=== PATIENT | female | born 1985 | race Caucasian/White ===

== ENCOUNTER → 2023-08-01 09:14 | Outpatient (REF) | payer BC, SELFPAY ==
[2023-08-11 12:10] LABS: HPV, High Risk Not Detected; HPV, High Risk Source Cervical
[2023-08-11 16:42] LABS: Chlamydia trachomatis,ThinPrep Negative (Negative); Neisseria gonorrhoeae,ThinPrep Negative (Negative); Specimen Source Cervical
== END ==
LOC: CLAB 09:14
PROVIDERS: ATTENDING PHYSICIAN Nurse Practitioner Family
DX: Z34.90 Encounter for supervision of normal pregnancy, unspecified, unspecified trimester (principal)
CPT/HCPCS: 87491; 87591; 87624; G0123

== ENCOUNTER → 2023-08-04 07:07 | Outpatient (REF) | payer BC, SELFPAY ==
[2023-08-04 08:10] LABS: Urine Albumin Negative (Neg - Trace); Urine Bilirubin Negative (Negative); Urine Character Clear (Clear); Urine Color Straw; Urine Glucose Negative (Negative); Urine Ketone Negative (Negative); Urine Leukocyte Negative (Negative); Urine Nitrite Negative (Negative); Urine Occult Blood Negative (Negative); Urine Urobilinogen Negative (Neg - 1+)
[2023-08-04 08:30] LABS: % Basophils 0.8 % (0-2); % Eosinophils 2.2 % (0-6); % Immature Granulocytes 0.3 % (0-0.5); % Monocytes 4.9 % (1.7-9.3); % Neutrophils 67.8 % (42.2-75.2); Absolute Basophils 0.1 10^3/uL (0-0.2); Absolute Eosinophils 0.2 10^3/uL (0-0.7); Absolute Lymphocytes 1.9 10^3/uL (1.2-3.4); Absolute Monocytes 0.4 10^3/uL (0.1-0.6); Absolute Neutrophils 5.3 10^3/uL (1.4-6.5); Hematocrit 37.2 % (37.0-47.0); Hemoglobin 12.6 g/dL (12.0-16.0); Mean Corp Hgb Conc. 33.9 g/dL (33.0-37.0); Mean Corpuscular Hgb 28.9 pg (27.0-31.0); Mean Corpuscular Volume 85.3 fL (81.0-99.0); Mean Platelet Volume 9.5 fL (7.4-10.4); Nucleated Red Blood Cells % 0 %; Platelet Count 294 10^3/uL (130-400); Red Blood Cell Count 4.36 10^6/uL (4.20-5.40); Red Cell Dist. Width 12.1 % (11.5-14.5); White Blood Cell Count 7.7 10^3/uL (4.8-10.8)
[2023-08-04 10:57] LABS: Glycohemoglobin (HgbA1c) 5.6 % (4.0-5.6)
[2023-08-04 21:57] LABS: HIV Combo Negative (Negative)
[2023-08-04 22:17] LABS: Hepatitis B Surface Antigen Negative (Negative)
[2023-08-04 22:34] LABS: Hepatitis C Antibody Negative (Negative)
[2023-08-06 20:27] LABS: Rubella Positive
[2023-08-07 16:20] LABS: Syphilis/T. pallidum Ab Reflex Negative (Negative)
== END ==
LOC: REG 07:07
PROVIDERS: ATTENDING PHYSICIAN Nurse Practitioner Family; FAMILY PHYSICIAN Family Medicine
DX: Z34.90 Encounter for supervision of normal pregnancy, unspecified, unspecified trimester (principal)
CPT/HCPCS: 36415; 80055; 81003; 83036; 84702; 86803; 86850; 86900; 86901; 87086; 87389

== ENCOUNTER → 2023-09-05 14:48 | Outpatient (REF) | payer BC, SELFPAY | LOC: PNTC 14:48 | PROVIDERS: ATTENDING PHYSICIAN Obstetrics & Gynecology | DX: Z36.0 Encounter for antenatal screening for chromosomal anomalies (principal) | CPT/HCPCS: 36415 ==

== ENCOUNTER → 2023-10-15 13:48 | Outpatient (REF) | payer BC, SELFPAY ==
[2023-10-17 17:09] LABS: Dating LMP CONF by US; Family Neural Tube Defect Hx Yes; Insulin Req Maternal Diabetes No; Maternal Age at Delivery 37.2 yr; Maternal Race Nonblack; Maternal Screen Interpretation Screen Neg; Maternal Weight 180.0 lbs.; Number of Fetuses Singleton; Patient's AFP Concentration 30 ng/mL; Smoking No
== END ==
LOC: REG 13:48
PROVIDERS: ATTENDING PHYSICIAN Obstetrics & Gynecology; FAMILY PHYSICIAN Family Medicine
DX: Z34.90 Encounter for supervision of normal pregnancy, unspecified, unspecified trimester (principal)
CPT/HCPCS: 36415; 82105

== ENCOUNTER → 2023-12-22 07:09 | Outpatient (REF) | payer BC, SELFPAY ==
[2023-12-22 09:04] LABS: % Basophils 0.3 % (0-2); % Eosinophils 5.6 % (0-6); % Immature Granulocytes 0.8 % (0-0.5); % Lymphocytes 23.4 % (20.5-51.1); % Monocytes 4.5 % (1.7-9.3); % Neutrophils 65.4 % (42.2-75.2); Absolute Eosinophils 0.4 10^3/uL (0-0.7); Absolute Immature Granulocytes 0.1 10^3/uL (0-0.05); Absolute Lymphocytes 1.8 10^3/uL (1.2-3.4); Absolute Monocytes 0.4 10^3/uL (0.1-0.6); Absolute Neutrophils 5.2 10^3/uL (1.4-6.5); Hemoglobin 10.4 g/dL (12.0-16.0); Mean Corp Hgb Conc. 33.5 g/dL (33.0-37.0); Mean Corpuscular Hgb 29.4 pg (27.0-31.0); Mean Corpuscular Volume 87.6 fL (81.0-99.0); Mean Platelet Volume 9.7 fL (7.4-10.4); Nucleated Red Blood Cells % 0 %; Platelet Count 212 10^3/uL (130-400); Red Blood Cell Count 3.54 10^6/uL (4.20-5.40); White Blood Cell Count 7.9 10^3/uL (4.8-10.8)
[2023-12-22 09:31] LABS: 1 Hour after 50gm 89 mg/dl
== END ==
LOC: REG 07:09
PROVIDERS: ATTENDING PHYSICIAN Obstetrics & Gynecology
DX: Z34.91 Encounter for supervision of normal pregnancy, unspecified, first trimester (principal)
CPT/HCPCS: 36415; 82950; 85025; 86780

== ENCOUNTER → 2023-12-31 16:03 | Outpatient (REF) | payer BC, SELFPAY | LOC: PNTC 16:03 | PROVIDERS: ATTENDING PHYSICIAN Obstetrics & Gynecology | DX: O09.529 Supervision of elderly multigravida, unspecified trimester (principal); O34.219 Maternal care for unspecified type scar from previous cesarean delivery | CPT/HCPCS: 76816; 93976 ==

== ENCOUNTER → 2024-01-28 15:46 | Outpatient (REF) | payer BC, SELFPAY | LOC: PNTC 15:46 | PROVIDERS: ATTENDING PHYSICIAN Obstetrics & Gynecology | DX: O99.210 Obesity complicating pregnancy, unspecified trimester (principal); O09.519 Supervision of elderly primigravida, unspecified trimester | CPT/HCPCS: 76816 ==

== ENCOUNTER → 2024-01-31 13:21 | Outpatient (REF) | payer BC, SELFPAY ==
[2024-01-31 16:10] LABS: Hematocrit 29.6 % (37.0-47.0); Hemoglobin 10.2 g/dL (12.0-16.0); Mean Corp Hgb Conc. 34.5 g/dL (33.0-37.0); Mean Corpuscular Hgb 29.8 pg (27.0-31.0); Mean Corpuscular Volume 86.5 fL (81.0-99.0); Mean Platelet Volume 9.9 fL (7.4-10.4); Platelet Count 214 10^3/uL (130-400); Red Blood Cell Count 3.42 10^6/uL (4.20-5.40); Red Cell Dist. Width 13.3 % (11.5-14.5); White Blood Cell Count 9.4 10^3/uL (4.8-10.8)
== END ==
LOC: REG 13:21
PROVIDERS: ATTENDING PHYSICIAN Obstetrics & Gynecology; FAMILY PHYSICIAN Family Medicine
DX: Z34.82 Encounter for supervision of other normal pregnancy, second trimester (principal)
CPT/HCPCS: 36415; 85027

== ENCOUNTER → 2024-02-22 10:00 | Outpatient (REF) | payer BC, SELFPAY | LOC: CPAP 10:00 | PROVIDERS: ATTENDING PHYSICIAN Obstetrics & Gynecology | DX: O09.523 Supervision of elderly multigravida, third trimester (principal); Z36.85 Encounter for antenatal screening for Streptococcus B | CPT/HCPCS: 87070 ==

== ENCOUNTER 2024-03-18 07:12 | Inpatient (IN) | payer BC, SELFPAY ==
--- NOTE | 2024-03-18 07:19 | W.SUR.PREOP ---
Pre-Operative Surgical Note
-
I have examined this patient prior to the performance of the scheduled procedure.
The patient's condition is unchanged from the time of the current History and
Physical and the patient is able to undergo the scheduled procedure.
[2024-03-18 07:21] VITALS: BMI 30.9
[2024-03-18] MEDS: LR 1000 IV (07:30)
[2024-03-18 07:42] VITALS: BP 142/68
[2024-03-18 07:49] LABS: Hematocrit 32.4 % (37.0-47.0); Hemoglobin 11.4 g/dL (12.0-16.0); Mean Corp Hgb Conc. 35.2 g/dL (33.0-37.0); Mean Corpuscular Hgb 30.4 pg (27.0-31.0); Mean Corpuscular Volume 86.4 fL (81.0-99.0); Mean Platelet Volume 9.7 fL (7.4-10.4); Platelet Count 165 10^3/uL (130-400); Red Blood Cell Count 3.75 10^6/uL (4.20-5.40); Red Cell Dist. Width 15.3 % (11.5-14.5); White Blood Cell Count 9.2 10^3/uL (4.8-10.8)
[2024-03-18] MEDS: BICITRA 30 ML PO (08:20)
[2024-03-18] MEDS: TYLENOL 1000 MG PO (08:20)
[2024-03-18] MEDS: TORADOL 15 MG IV ×2 (15:32→22:09)
[2024-03-18] MEDS: MYLICON 80 MG PO (16:01)
[2024-03-18] MEDS: TYLENOL 650 MG PO (16:01)
[2024-03-18] MEDS: PERCOCET 5/325 1 TABLET PO (22:09)
[2024-03-19] MEDS: TORADOL 15 MG IV ×2 (03:59→09:35)
[2024-03-19] MEDS: TYLENOL 650 MG PO ×3 (04:03→16:08)
[2024-03-19 04:29] LABS: Hematocrit 29.5 % (37.0-47.0); Mean Corp Hgb Conc. 33.9 g/dL (33.0-37.0); Mean Corpuscular Hgb 29.9 pg (27.0-31.0); Mean Corpuscular Volume 88.1 fL (81.0-99.0); Mean Platelet Volume 9.7 fL (7.4-10.4); Platelet Count 181 10^3/uL (130-400); Red Blood Cell Count 3.35 10^6/uL (4.20-5.40); Red Cell Dist. Width 15.5 % (11.5-14.5); White Blood Cell Count 9.5 10^3/uL (4.8-10.8)
--- NOTE | 2024-03-19 08:09 | W.PN.ANS.POP ---
Anesthesia Post Operative
- Anesthesia Post Op Note
Vital Signs Stable-See Nursing Note: Yes
Airway Patent: Yes
Adequate Pain Control: Yes
Change in Mental Status: No
Current Postoperative Nausea & Vomiting: No
Anesthesia Complications: No
General Anesthetic Recall: No
Unplanned Admission: No
Post Op Hydration Adequate: Yes
- -
Pt doing well as per RN, OOB, no N/V. Resting comfortably.
[2024-03-19] MEDS: MOTRIN 600 MG PO ×2 (16:09→22:16)
[2024-03-19] MEDS: MYLICON 80 MG PO (20:59)
[2024-03-19] MEDS: PERCOCET 5/325 1 TABLET PO (22:17)
[2024-03-20] MEDS: MOTRIN 600 MG PO ×4 (03:56→22:04)
[2024-03-20] MEDS: TYLENOL 650 MG PO ×4 (03:56→22:03)
[2024-03-20] MEDS: FEOSOL PO (08:54)
[2024-03-20] MEDS: SENOKOT-S 1 TABLET PO (15:56)
[2024-03-21] MEDS: MOTRIN 600 MG PO ×2 (03:55→10:00)
[2024-03-21] MEDS: TYLENOL 650 MG PO ×2 (03:55→10:00)
[2024-03-21] MEDS: FEOSOL 325 MG PO (08:13)
[2024-03-21] MEDS: SENOKOT-S 1 TABLET PO (08:14)
[2024-03-21 10:37] LABS: Syphilis/T. pallidum Ab Reflex Negative (Negative)
== END 2024-03-21 11:54 | disposition home or self-care (01) | DRG 785 ==
LOC: LDRP 07:12
PROVIDERS: ADMITTING PHYSICIAN Obstetrics & Gynecology; FAMILY PHYSICIAN Family Medicine
PROC: 0UT70ZZ Resection of Bilateral Fallopian Tubes, Open Approach (ICD-10-PCS; 2024-03-18)
PROC: 10D00Z1 Extraction of Products of Conception, Low, Open Approach (ICD-10-PCS; 2024-03-18)
DX: O34.211 Maternal care for low transverse scar from previous cesarean delivery (principal); O34.13 Maternal care for benign tumor of corpus uteri, third trimester; D25.2 Subserosal leiomyoma of uterus; O90.81 Anemia of the puerperium; Z30.2 Encounter for sterilization; Z37.0 Single live birth; Z3A.39 39 weeks gestation of pregnancy; Z64.1 Problems related to multiparity
CPT/HCPCS: 88302; 58605; 85027; 86780; 86850; 86900; 86901

== ENCOUNTER 2024-03-25 10:54 | Observation (INO) | payer BC, SELFPAY ==
[2024-03-25 11:32] VITALS: BMI 28.7
[2024-03-25 11:35] LABS: % Basophils 0.6 % (0-2); % Eosinophils 3.4 % (0-6); % Immature Granulocytes 0.6 % (0-0.5); % Lymphocytes 27.3 % (20.5-51.1); % Monocytes 4.1 % (1.7-9.3); Absolute Eosinophils 0.2 10^3/uL (0-0.7); Absolute Lymphocytes 1.9 10^3/uL (1.2-3.4); Absolute Monocytes 0.3 10^3/uL (0.1-0.6); Absolute Neutrophils 4.5 10^3/uL (1.4-6.5); Hemoglobin 11.1 g/dL (12.0-16.0); Mean Corp Hgb Conc. 33.6 g/dL (33.0-37.0); Mean Corpuscular Hgb 28.6 pg (27.0-31.0); Mean Corpuscular Volume 85.1 fL (81.0-99.0); Mean Platelet Volume 9.2 fL (7.4-10.4); Nucleated Red Blood Cells % 0 %; Platelet Count 292 10^3/uL (130-400); Red Blood Cell Count 3.88 10^6/uL (4.20-5.40); Red Cell Dist. Width 14.2 % (11.5-14.5); White Blood Cell Count 7.1 10^3/uL (4.8-10.8)
[2024-03-25 11:52] LABS: ALT (SGPT) 22 U/L (0-35); AST (SGOT) 21 U/L (14-36); Albumin 3.8 g/dl (3.5-5.0); Alkaline Phosphatase 108 U/L (38-126); Blood Urea Nitrogen 17 mg/dl (7-17); Calcium 9.4 mg/dl (8.4-10.2); Carbon Dioxide 24 mmol/L (22-30); Chloride 108 mmol/L (98-107); Estimated Creatinine Clearance > 125 ml/min; Glucose 89 mg/dl (70-99); Potassium 4.3 mmol/L (3.5-5.1); Sodium 141 mmol/L (135-145); Total Bilirubin 0.2 mg/dl (0.2-1.3); Total Protein 6.4 g/dl (6.3-8.2); eGFR > 60.00
[2024-03-25] MEDS: BENADRYL 25 MG IV (12:02)
[2024-03-25] MEDS: REGLAN 10 MG IV (12:02)
[2024-03-25 13:10] LABS: Protein/creatinine Ratio 0.1; Urine Protein 8 mg/dl
[2024-03-25 14:41] VITALS: BP 145/98
== END 2024-03-25 14:44 | disposition home or self-care (01) ==
LOC: LDRP 10:54
PROVIDERS: ADMITTING PHYSICIAN Student in an Organized Health Care Education/Training Program
DX: R51.9 Headache, unspecified (principal); R03.0 Elevated blood-pressure reading, without diagnosis of hypertension; O09.523 Supervision of elderly multigravida, third trimester; Z3A.39 39 weeks gestation of pregnancy
CPT/HCPCS: 80053; 82570; 84156; 85025; G0378

== ENCOUNTER → 2024-11-03 09:26 | Outpatient (REF) | payer BC, SELFPAY ==
[2024-11-03 10:35] LABS: % Basophils 0.7 % (0-2); % Immature Granulocytes 0.2 % (0-0.5); % Lymphocytes 32.5 % (20.5-51.1); % Monocytes 4.7 % (1.7-9.3); % Neutrophils 57.9 % (42.2-75.2); Absolute Eosinophils 0.2 10^3/uL (0-0.7); Absolute Lymphocytes 1.8 10^3/uL (1.2-3.4); Absolute Monocytes 0.3 10^3/uL (0.1-0.6); Absolute Neutrophils 3.2 10^3/uL (1.4-6.5); Hematocrit 38.2 % (37.0-47.0); Hemoglobin 12.9 g/dL (12.0-16.0); Mean Corp Hgb Conc. 33.8 g/dL (33.0-37.0); Mean Corpuscular Hgb 29.5 pg (27.0-31.0); Mean Corpuscular Volume 87.2 fL (81.0-99.0); Mean Platelet Volume 10.1 fL (7.4-10.4); Nucleated Red Blood Cells % 0 %; Platelet Count 304 10^3/uL (130-400); Red Blood Cell Count 4.38 10^6/uL (4.20-5.40); Red Cell Dist. Width 12.3 % (11.5-14.5); White Blood Cell Count 5.5 10^3/uL (4.8-10.8)
[2024-11-03 11:11] LABS: ALT (SGPT) 23 U/L (0-35); AST (SGOT) 22 U/L (14-36); Alkaline Phosphatase 61 U/L (38-126); Blood Urea Nitrogen 17 mg/dl (7-17); Carbon Dioxide 28 mmol/L (22-30); Chloride 106 mmol/L (98-107); Glucose 96 mg/dl (70-99); HDL Cholesterol 46 mg/dl; LDL Cholesterol, Calculated 127 mg/dl; Potassium 5.1 mmol/L (3.5-5.1); Sodium 142 mmol/L (135-145); Total Bilirubin 0.6 mg/dl (0.2-1.3); Total Cholesterol 186 mg/dl (50-199); Total Protein 8.1 g/dl (6.3-8.2); Triglyceride 66 mg/dl (10-149); Very Low Density Lipoprotein 13 mg/dl (0-30); eGFR > 60.00
[2024-11-03 11:57] LABS: Free T4 0.67 ng/dl (0.78-2.19)
== END ==
LOC: REG 09:26
PROVIDERS: ATTENDING PHYSICIAN Nurse Practitioner Family; FAMILY PHYSICIAN Family Medicine
DX: Z00.00 Encounter for general adult medical examination without abnormal findings (principal); Z13.220 Encounter for screening for lipoid disorders; Z79.899 Other long term (current) drug therapy
CPT/HCPCS: 36415; 80053; 80061; 84439; 84443; 85025

== ENCOUNTER → 2024-12-26 14:10 | Outpatient (REF) | payer BC, SELFPAY | LOC: REG 14:10 | PROVIDERS: ATTENDING PHYSICIAN Nurse Practitioner Family; FAMILY PHYSICIAN Family Medicine | DX: R79.89 Other specified abnormal findings of blood chemistry (principal) | CPT/HCPCS: 36415; 84443 ==

== ENCOUNTER → 2025-03-24 16:43 | Outpatient (REF) | payer BC, SELFPAY | LOC: REG 16:43 | PROVIDERS: ATTENDING PHYSICIAN Nurse Practitioner Family; FAMILY PHYSICIAN Family Medicine | DX: E06.3 Autoimmune thyroiditis (principal) | CPT/HCPCS: 36415; 84443 ==